=== PATIENT | male | born 1990 | race Two or more races ===

== ENCOUNTER 2024-07-02 20:44 | Inpatient (IN) | payer MEDICAID, OTHER ==
[~2024-07-02] VITALS: Ht 165.1 cm; Wt 92.7 kg
--- NOTE | 2024-07-02 21:20 | ED.PDOC ---
History of Present Illness HPI Comments 24 y/o M, with a Hx of HTN, obesity, and EtOH abuse, is BIBA for c/o ALOC s/p EtOH intoxication and chest pain, today. Per EMS report, patient was found by bystanders in altered and intoxicated state outside an "[employer]," this evening. On scene, EMS informs on patient, initially, c/o non-radiating, sternal chest pain in addition to admitting to heavy EtOH use, earlier, with all vitals within normal limits. At time of evaluation, patient is a poor historian and only reports last EtOH intake being yesterday. Patient endorses on no further relevant or pertinent past medical, surgical, or family Hx. Patient denies having any headache, dizziness, lightheadedness, shortness of breath, palp itations, nausea, vomiting, fever, chills, or other associated symptoms or modifiers at this time. 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 Past Medical History PAST MEDICAL HISTORY: HTN Past Medical History (Other): obesity Surgical History: Denies all surgeries Family History Family History: Unknown Social History Smoker: Non-Smoker Alcohol: Heavy Drugs: Denies Drug Use Lives In: Home Constitutional: denies: chills, diaphoresis, fatigue, fever, malaise, sweats, weakness, others EENTM: denies: blurred vision, double vision, ear bleeding, ear discharge, ear drainage, ear pain, ear ringing, eye pain, eye redness, hearing loss, mouth pain, mouth swelling, nasal discharge, nose bleeding, nose congestion, nose pain, photophobia, tearing, throat pain, throat swelling, voice changes, others Respiratory: denies: cough, hemoptysis, orthopnea, SOB at rest, shortness of breath, SOB with excertion, stridor, wheezing, others Cardiovascular: reports: chest pain; denies: dizzy spells, diaphoresis, Dyspnea on exertion, edema, irregular heart beat, left arm pain, lightheadedness, palpitations, PND, syncope, others Gastrointestinal: denies: abdomen distended, abdominal pain, blood streaked bowels, constipated, diarrhea, dysphagia, difficulty swallowing, hematemesis, melena, nausea, poor appetite, poor fluid intake, rectal bleeding, rectal pain, vomiting, others Genitourinary: denies: burning, dysuria, flank pain, frequency, hematuria, incontinence, penile discharge, penile sore, pain, testicle pain, testicle swelling, urgency, others Neurological: reports: others (ALOC s/p EtOH intoxication ); denies: dizziness, fainting, headache, left sided numbness, left sided weakness, numbness, paresthesia, pre-existing deficit, right sided numbness, right sided weakness, seizure, speech problems, tingling, tremors, weakness Musculoskeletal: denies: back pain, gout, joint pain, joint swelling, muscle pain, muscle stiffness, neck pain, others Integumetry: denies: bruises, change in color, change in hair/nails, dryness, laceration, lesions, lumps, rash, wounds, others Allergic/Immunocompromised: denies: Difficulty Healing, Frequent Infections, Hives, Itching, others Hematologic/Lymphatic: denies: anemia, blood clots, easy bleeding, easy bruising, swollen glands, others Endocrine: denies: excessive hunger, excessive sweating, excessive thirst, excessive urination, flushing, intolerance to cold, intolerance to heat, unexplained weight gain, unexplained weight loss, others Psychiatric: denies: anxiety, bipolar disorder, depression, hopeless, panic disorder, schizophrenia, sleepless, suicidal, others All Other Systems: Reviewed and Negative Physical Exam General Appearance: Moderate Distress HEENT: Normal ENT Inspection, Pharynx Normal, TMs Normal Neck: Full Range of Motion, Non-Tender, Normal, Normal Inspection Respiratory: Chest Non-Tender, Lungs Clear, No Accessory Muscle Use, No Respiratory Distress, Normal Breath Sounds Cardiovascular: No Edema, No JVD, No Murmur, No Gallop, Normal Peripheral Pulses, Regular Rate/Rhythm Breast Exam: Deferred Gastrointestinal: No Organomegaly, Non Tender, No Pulsatile Mass, Normal Bowel Sounds, Soft Genitalia: Deferred Pelvic: Deferred Rectal: Deferred Extremities: No calf tenderness, Normal capillary refill, Normal inspection, Normal range of motion, Non-tender, No pedal edema Musculoskeletal : Apperance: Normal Neurologic: Alert, 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 Was a procedure done?: No Differential Dx Considerations may include: EtOH intoxication, substance abuse, ID, ACS, angina, costochondritis, musculoskeletal pain, gastritis, gastroenteritis X-Ray, Labs, Meds, VS Vital Signs Date Time Temp Pulse Resp B/P (MAP) Pulse Ox O2 Delivery O2 Flow Rate FiO2 07/02/24 20:49 98.2 115 20 140/76 (97) 100 Lab Test 07/02/24 22:26 07/02/24 21:26 Range/Units White Blood Count 10.0 4.4-10.8 10^3/uL Red Blood Count 5.85 4.5-5.90 10^6/uL Hemoglobin 16.9 13.5-17.5 g/dL Hematocrit 50.7 41.0-53.0 % Mean Corpuscular Volume 86.7 80.0-100.0 fL Mean Corpuscular Hemoglobin 28.8 28.0-32.0 pg Mean Corpuscular Hemoglobin Concent 33.3 32.0-36.0 g/dL Red Cell Distribution Width 16.8 H 11.8-14.3 % Platelet Count 213 140-450 10^3/uL Mean Platelet Volume 8.2 6.9-10.8 fL Neutrophils (%) (Auto) 81.1 H 37.0-80.0 % Lymphocytes (%) (Auto) 13.0 10.0-50.0 % Monocytes (%) (Auto) 5.6 0.0-12.0 % Eosinophils (%) (Auto) 0.0 0.0-7.0 % Basophils (%) (Auto) 0.3 0.0-2.0 % Neutrophils # (Auto) 8.1 1.6-8.6 10 ^3/uL Lymphocytes # (Auto) 1.3 0.4-5.4 10 ^3/uL Monocytes # (Auto) 0.6 0-1.3 10 ^3/uL Eosinophils # (Auto) 0 0-0.8 10 ^3/uL Basophils # (Auto) 0 0-0.2 10 ^3/uL Nucleated Red Blood Cells 0.2 % Sodium Level 142 136-145 mmol/L Potassium Level 4.3 3.5-5.1 mmol/L Chloride Level 104 98-107 mmol/L Carbon Dioxide Level 18 L 20-31 mmol/L Anion Gap 20 H 5-15 Blood Urea Nitrogen 11 9-23 mg/dL Creatinine 0.85 0.700-1.30 mg/dL Glomerular Filtration Rate Calc 115 >90 mL/min BUN/Creatinine Ratio 12.9 10.0-20.0 Serum Glucose 131 H 74-106 mg/dL Calcium Level 8.9 8.7-10.4 mg/dL Total Bilirubin 0.6 0.2-1.0 mg/dL Aspartate Amino Transferase (AST) 147 H 13-40 U/L Alanine Aminotransferase (ALT) 92 H 7-40 U/L Alkaline Phosphatase 145 H 46-116 U/L Total Protein 7.1 5.7-8.2 g/dL Albumin 4.5 3.2-4.8 g/dL Plasma/Serum Blood Alcohol 365.1 H <10 mg/dL Troponin I High Sensitivity 7 </=54 ng/L Current Medications Medications (Trade) Dose Ordered Sig/Faith Route Start Time Stop Time Status Last Admin Sodium Chloride 1,000 ml @ 1,000 mls/hr Q1H ONCE IVB 07/02/24 21:00 07/02/24 21:59 DC 07/03/24 00:22 Thiamine HCl 100 mg ONCE ONCE IV 07/02/24 21:00 07/02/24 21:01 DC 07/03/24 00:23 [place] [address] Ph: [phone] DIAGNOSTIC IMAGING Diagnostic Imaging Report : [id number] Signed PATIENT: PAUL BOWERS ACCT: [id number] UNIT: [id number] : 1990 LOC: TELE ROOM / BED: [address] [place] [address] / A AGE / SEX: 34 / M ADM STATUS: ADM IN SERVICE [id number] ORDERING PHYSICIAN: DORIE CUENCA RESIDENT PROCEDURE(s): CTH - STROKE CTH REASON: ORDER NUMBER(s): [id number], ACCESSION NUMBER(s): [id number] EXAM: CT STROKE CTH HISTORY: Stroke COMPARISON: None TECHNIQUE: Axial images were obtained and reformatted in coronal and sagittal planes. All CT scans at this medical facility are performed using dose modulation techniques as appropriate to a performed exam including the following: Automated exposure control was utilized; adjustment of the MA and/or KV according to patient size; and use of iterative reconstruction technique. CT Dose: CTDI volume is 62.03 mGy. Dose-length product is 994.09 mGy*cm FINDINGS: Supratentorial Region: No evidence for large acute territorial ischemia. No intracranial hemorrhage is noted. Brainstem: Unremarkable. Sellar/Suprasellar Region: Unremarkable. Ventricles, Cisterns, Sulci: Age-appropriate. Orbits: Unremarkable. Paranasal Sinuses: Unremarkable. Mastoid Air Cells: Unremarkable. Vasculature: Unremarkable. Bones/Soft Tissues: No acute abnormality. Other: None. IMPRESSION: No acute intracranial process. Consider MRI if there is high clinical suspicion for acute CVA. ATED BY: LETITIA BHATT DO DICTATED DATE/TIME: 07/03/24135 SIGNED BY: LETITIA BHATT DO SIGNED DATE/TIME: 07/03/24135 CC: Patient alert. Complaining of chest pain. Alcohol on his breath. Cardiac marker within normal limits. Tachycardia. Saturation pristine on room air. Establish intravenous access. Was given fluids. Was given thiamine. EKG reviewed does not show any acute changes. Counseled patient on effects of alcohol for 15 minutes. Reviewed his history. Explained to the patient treatment plan. Time of 1ST Reevaluation: 21:30 Reevaluation 1ST: Unchanged Patient Education/Counseling: Diagnosis, Treatment Family Education/Counseling: No Family Present Departure 1 Departure Time of Disposition: 22:21 Impression: Primary Impression: Chest pain of unknown etiology Additional Impression: Alcohol abuse Disposition: ADMITTED INPATIENT Admit to: Med Surg Condition: Guarded Critical Care Note Critical Care Time?: Yes (45 min-critical care time only) Stability Stability form required: No Heart Score Heart Score: Heart Score Response (Comments) Value History Slightly Suspicious 0 EKG Normal 0 Age <45 0 Risk Factors No known risk factors 0 Troponin Normal limit 0 Total 0 I personally scribed for SONAL HERNANDEZ MD ([email or web address]) on 07/02/24 at 21:20. Electronically submitted by Venkatesh Magallanes ([email or web address]). I personally scribed for SONAL HERNANDEZ MD ([email or web address]) on 07/03/24 at 01:43. Electronically submitted by Venkatesh Magallanes ([email or web address]). SONAL HERNANDEZ MD Jul 02, 2024 21:20
[2024-07-02 22:37] LABS: Basophils # (auto) 0 10 ^3/uL (0-0.2); Basophils % (auto) 0.3 % (0.0-2.0); Eosinophils # (auto) 0 10 ^3/uL (0-0.8); Hematocrit 50.7 % (41.0-53.0); Hemoglobin 16.9 g/dL (13.5-17.5); Lymphocytes # (auto) 1.3 10 ^3/uL (0.4-5.4); Mean Corpuscular Hemoglobin 28.8 pg (28.0-32.0); Mean Corpuscular Hgb Conc. 33.3 g/dL (32.0-36.0); Mean Corpuscular Volume 86.7 fL (80.0-100.0); Monocytes # (auto) 0.6 10 ^3/uL (0-1.3); Monocytes % (auto) 5.6 % (0.0-12.0); Neutrophils # (auto) 8.1 10 ^3/uL (1.6-8.6); Neutrophils % (auto) 81.1 % (37.0-80.0); Nucleated Red Blood Cells % 0.2 %; Platelet Count (auto) 213 10^3/uL (140-450); Red Blood Cells 5.85 10^6/uL (4.5-5.90); Red Cell Distribution Width 16.8 % (11.8-14.3)
[2024-07-02 22:42] LABS: Chloride 104 mmol/L (98-107); Potassium 4.3 mmol/L (3.5-5.1); Sodium 142 mmol/L (136-145)
[2024-07-02 22:43] LABS: Anion Gap 20 (5-15); Carbon Dioxide 18 mmol/L (20-31)
[2024-07-02 22:44] LABS: Calcium 8.9 mg/dL (8.7-10.4)
[2024-07-02 22:48] LABS: BUN/Creatinine Ratio 12.9 (10.0-20.0); Blood Urea Nitrogen 11 mg/dL (9-23); Glucose 131 mg/dL (74-106)
[2024-07-02 22:58] LABS: Blood Alcohol 365.1 mg/dL (<10)
[2024-07-02] MEDS ORDERED: NITROGLYCERIN 0.4 MG SL TAB SL PRN (23:30)
[2024-07-02] MEDS ORDERED: MORPHINE SULFATE INJ 2 MG/ml SYRG IV PRN (23:30)
[2024-07-03] VITALS (7 sets, daily range): BP systolic 121–128; BP diastolic 69–82; PULSE 20–125; RESP 18–22; TEMP 97.5–99.1; O2SAT 96–100
[2024-07-03 00:14] LABS: Urine Bacteria FEW /hpf (None Seen); Urine Blood 1+ /uL (Negative); Urine Clarity Clear (Clear); Urine Color Yellow (Yellow); Urine Hyaline Cast MOD /lpf (0 - 2); Urine Mucus FEW (None Seen); Urine Protein, UAD 2+ (Negative); Urine Specific Gravity 1.025 (1.001-1.035); Urine Urobilinogen Normal (Negative); Urine WBC 3 /hpf (0 - 3); Urine pH 5.5 (5.0-9.0)
[2024-07-03 00:16] LABS: Albumin 4.5 g/dL (3.2-4.8); Bilirubin, Total 0.6 mg/dL (0.2-1.0); Total Protein 7.1 g/dL (5.7-8.2)
[2024-07-03 00:18] LABS: Amphetamine Screen, Urine Neg (NEGATIVE); Barbiturate Scree,Urine Neg (NEGATIVE); Benzodiazephine Screen, Urine Neg (NEGATIVE); Cannabinoid Screen, Urine Neg (NEGATIVE); Cocaine Screen, Urine Neg (NEGATIVE); Opiate Scree,Urine Neg (NEGATIVE); Phencyclidine Screen, Urine Neg (NEGATIVE)
[2024-07-03] MEDS: chlordiazePOXIDE HCL 25 MG CAP PO SCH (00:22)
[2024-07-03] MEDS: SODIUM CHLORIDE 0.9% 1,000 ML IVB ONE (00:22)
[2024-07-03] MEDS: ENOXAPARIN SOD 40 MG/0.4 ML SYRINGE SC SCH (00:22)
[2024-07-03] MEDS: THIAMINE 100mg/ml INJ (200mg/2ml VIAL) IV ONE (00:23)
--- NOTE | 2024-07-03 00:25 | DVHHPRES ---
History of Present Illness Resident Creating Document: DORIE CUENCA RESIDENT History of Present Illness PAUL BOWERS 34 years old male with a PMH of HTN, alcohol abuse, obesity presented to the ED with the chief complaints of altered level of consciousness due to ethanol intoxication or withdrawal and generalized chest pain since day of admission. Patient is poor historian unable to give complete details. Patient reported he took his last drink yesterday morning. Patient reported nonradiating diffuse chest pain nothing makes it better or worse since morning. Per EMS report patient was found by bystanders in altered or intoxicated state outside of an auto zone this evening. On my assessment patient is shaking, anxious, nauseous, feeling of ants crawling in the body but denies fever, chills, shortness of breath, dizziness and other associated symptoms Past Medical History HTN, alcohol abuse, obesity Past Surgical History: None Family History: None Past Social History Heavy alcohol abuser but denies smoking and other drug abuse Review of Systems Constitutional: Yes: Sweats Eyes: No: Pain, Vision change, Conjunctivae inflammation, Eyelid inflammation, Other, Redness ENT: No: Ear pain, Ear discharge, Nose pain, Nose discharge, Nose congestion, Mouth pain, Mouth swelling, Throat pain, Throat swelling, Other Respiratory: No: Cough, Dry, Shortness of breath, SOB with excertion, Wheezing, Hemoptysis, Pleuritic Pain, Sputum, Wheezing, Other Cardiovascular: Chest Pain Gastrointestinal: Nausea, Vomiting Genitourinary: No Dysuria, No Frequency, No Incontinence, No Hematuria, No Retention, No Other Musculoskeletal: other (Generalized body pain) Skin: No: Rash, Lesions, Jaundice, Bruising, Other Neurological: Confusion Allergies: Coded Allergies: NO KNOWN ALLERGIES (Unverified , 07/02/24) Medications Current Medications Medications Dose Ordered Sig/Faith Route Start Time Stop Time Status Last Admin Dose Admin Ondansetron HCl 4 mg Q4HP PRN IV 07/02/24 23:30 Multivitamins 1 tab DAILY PO 07/03/24 10:00 Acetaminophen 650 mg Q6HP PRN PO 07/02/24 23:30 Enoxaparin Sodium 40 mg DAILY SC 07/02/24 23:30 Nitroglycerin 0.4 mg Q5MINP PRN SL 07/02/24 23:30 Morphine Sulfate 2 mg Q30M PRN IV 07/02/24 23:30 Chlordiazepoxide HCl 50 mg Q8H PO 07/02/24 23:30 07/03/24 15:31 Chlordiazepoxide HCl 50 mg Q12HR PO 07/03/24 10:00 07/03/24 22:01 Chlordiazepoxide HCl 25 mg Q12HR PO 07/04/24 10:00 07/04/24 22:01 Chlordiazepoxide HCl 25 mg QAM PO 07/05/24 07:00 07/05/24 07:01 Folic Acid 1 mg/ Multivitamins 10 ml/Magnesium Sulfate 8 meq/ Thiamine HCl 100 mg/Dextrose 1,013.2 ml @ 125.001 mls/hr DAILY@1800 INJ 07/03/24 18:00 Exam Vital Signs Vital Signs Date Time Temp Pulse Resp B/P (MAP) Pulse Ox O2 Delivery O2 Flow Rate FiO2 07/03/24 00:09 20 18 100 Room Air* 0 21 07/03/24 00:05 98.6 132/78 (96) 98.6 Exam limited exam due to patient clinical status General Appearance: Pt is lying on bed, HEENT: Atraumatic, Mucous membranes moist/pink Respiratory: Clear to auscultation, Normal air movement, No added sounds Cardiovascular: Regular rate, Normal S1, Normal S2, No murmurs Abdominal: Active bowel sounds, Soft, no distention, no tenderness Extremities: No edema, Normal pulses, No tenderness/swelling Skin: No Significant rash, Neuro: Normal speech, sensorimotor deficits none Nurse was there as sharperone during examination Labs/Xrays Labs Test 07/02/24 23:53 07/02/24 22:26 07/02/24 21:26 Range/Units Urine Color Yellow Yellow Urine Clarity Clear Clear Urine pH 5.5 5.0-9.0 Urine Specific [place] 1.025 1.001-1.035 Urine Protein 2+ H Negative Urine Ketones 3+ H Negative Urine Blood 1+ H Negative /uL Urine Nitrite Negative Negative Urine Bilirubin Negative Negative Urine Urobilinogen Normal Negative mg/dL Urine Leukocyte Esterase Negative Negative /uL Urine RBC 2 0 - 3 /hpf Urine WBC 3 0 - 3 /hpf Urine Squamous Epithelial Cells Few <5 /hpf Urine Bacteria Few H None Seen /hpf Urine Hyaline Casts Mod 0 - 2 /lpf Urine Mucus Few None Seen Urine Glucose Normal Normal mg/dL White Blood Count 10.0 4.4-10.8 10^3/uL Red Blood Count 5.85 4.5-5.90 10^6/uL Hemoglobin 16.9 13.5-17.5 g/dL Hematocrit 50.7 41.0-53.0 % Mean Corpuscular Volume 86.7 80.0-100.0 fL Mean Corpuscular Hemoglobin 28.8 28.0-32.0 pg Mean Corpuscular Hemoglobin Concent 33.3 32.0-36.0 g/dL Red Cell Distribution Width 16.8 H 11.8-14.3 % Platelet Count 213 140-450 10^3/uL Mean Platelet Volume 8.2 6.9-10.8 fL Neutrophils (%) (Auto) 81.1 H 37.0-80.0 % Lymphocytes (%) (Auto) 13.0 10.0-50.0 % Monocytes (%) (Auto) 5.6 0.0-12.0 % Eosinophils (%) (Auto) 0.0 0.0-7.0 % Basophils (%) (Auto) 0.3 0.0-2.0 % Neutrophils # (Auto) 8.1 1.6-8.6 10 ^3/uL Lymphocytes # (Auto) 1.3 0.4-5.4 10 ^3/uL Monocytes # (Auto) 0.6 0-1.3 10 ^3/uL Eosinophils # (Auto) 0 0-0.8 10 ^3/uL Basophils # (Auto) 0 0-0.2 10 ^3/uL Nucleated Red Blood Cells 0.2 % Sodium Level 142 136-145 mmol/L Potassium Level 4.3 3.5-5.1 mmol/L Chloride Level 104 98-107 mmol/L Carbon Dioxide Level 18 L 20-31 mmol/L Anion Gap 20 H 5-15 Blood Urea Nitrogen 11 9-23 mg/dL Creatinine 0.85 0.700-1.30 mg/dL Glomerular Filtration Rate Calc 115 >90 mL/min BUN/Creatinine Ratio 12.9 10.0-20.0 Serum Glucose 131 H 74-106 mg/dL Calcium Level 8.9 8.7-10.4 mg/dL Plasma/Serum Blood Alcohol 365.1 H <10 mg/dL Troponin I High Sensitivity 7 </=54 ng/L Assessment/Plan Assessment/Plan # Acute toxic or metabolic encephalopathy likely secondary to alcohol # Acute alcohol intoxication # Acute alcohol withdrawal -plasma alcohol is elevated -ordered withdrawal protocol -currently given Librium -started banana bag -head CT pending -UDS pending -CIWA score is 21 # chest pain rule out ACS -reviewed EKG -troponins were negative Lovenox for now Protonix Cardiac diet Reconciled home meds Goals of care discussed with the patient for more than 27 minutes: Full code status Case management discussed with Dr. Guerrero, patient and nurse Plan discussed with: Patient My Orders Orders - DORIE CUENCA RESIDENT Procedure Category Date Status Time Admit ADMIT 07/02/24 Transmitted 23:29 Allergies PUSHPA 07/02/24 In Process 23:29 Code Status CODE 07/02/24 Transmitted 23:29 Ondansetron Hcl PHA 07/02/24 In Process (Zofran) 23:30 Multiple Vitamin PHA 07/03/24 In Process Tablet (Mvi Tab) 10:00 Complete Blood Count LAB 07/03/24 Logged 04:00 Comprehensive LAB 07/03/24 Logged Metabolic Panel 04:00 Acetaminophen Tablet PHA 07/02/24 In Process (Tylenol Tablet) 23:30 Enoxaparin Sodium PHA 07/02/24 In Process (Lovenox) 23:30 Nitroglycerin PHA 07/02/24 In Process Sublingual (Ntrostat 23:30 Morphine Sulfate PHA 07/02/24 In Process Injection 23:30 Oxygen By Nasal RT 07/02/24 Transmitted Cannula 23:29 Stat Ekg For Chest PUSHPA 07/02/24 In Process Pain 23:29 Notify Md Of Changes PUSHPA 07/02/24 In Process From Base 23:29 Flat Sorting Machine Clerk For PUSHPA 07/02/24 In Process 24 Hours 23:29 Emergency Dysrhythmia PUSHPA 07/02/24 In Process Protocol 23:29 Rhythm Strips Once PUSHPA 07/02/24 In Process Every Shift 23:29 Drug Screen LAB 07/02/24 In Process 23:29 Chlordiazepoxide Hcl PHA 07/02/24 In Process Capsule (Librium Ca 23:30 Chlordiazepoxide Hcl PHA 07/03/24 In Process Capsule (Librium Ca 10:00 Chlordiazepoxide Hcl PHA 07/04/24 In Process Capsule (Librium Ca 10:00 Chlordiazepoxide Hcl PHA 07/05/24 In Process Capsule (Librium Ca 07:00 Folic Acid... PHA 07/03/24 In Process 18:00 Vitamin D, 25-Hydroxy LAB 07/03/24 Logged 00:11 Vitamin B12 LAB 07/03/24 Logged 00:11 Thyroid Stimulating LAB 07/03/24 Logged Hormone 00:11 Hemoglobin A1c LAB 07/03/24 Logged 00:[address] 07/03/24 Logged 00:18 B-Type Natriuretic LAB 07/03/24 Logged Peptide 00:19 Pantoprazole PHA 07/03/24 Transmitted (Protonix) 00:30 Date of Service: Jul 02, 2024 Billing Provider: XIOMARA GUERRERO MD Common Visit Codes: [id number] INP/OBS CARE (HIGH) DORIE CUENCA RESIDENT Jul 03, 2024 00:25 XIOMARA GUERRERO MD Jul 04, 2024 09:28
[2024-07-03] MEDS: PANTOPRAZOLE 40 MG/10 ML VIAL INJ IV SCH (01:10)
--- NOTE | 2024-07-03 01:39 | DVH ---
EXAM: CT STROKE CTH HISTORY: Stroke COMPARISON: None TECHNIQUE: Axial images were obtained and reformatted in coronal and sagittal planes. All CT scans at this medical facility are performed using dose modulation techniques as appropriate t o a performed exam including the following: Automated exposure control was utilized; adjustment of th e MA and/or KV according to patient size; and use of iterative reconstruction technique. CT Dose: CTDI volume is 62.03 mGy. Dose-length product is 994.09 mGy*cm FINDINGS: Supratentorial Region: No evidence for large acute territorial ischemia. No intracranial hemorrhage is noted. Brainstem: Unremarkable. Sellar/Suprasellar Region: Unremarkable. Ventricles, Cisterns, Sulci: Age-appropriate. Orbits: Unremarkable. Paranasal Sinuses: Unremarkable. Mastoid Air Cells: Unremarkable. Vasculature: Unremarkable. Bones/Soft Tissues: No acute abnormality. Other: None. IMPRESSION: No acute intracranial process. Consider MRI if there is high clinical suspicion for acute CVA.
[2024-07-03 06:08] LABS: Basophils # (auto) 0 10 ^3/uL (0-0.2); Basophils % (auto) 0.5 % (0.0-2.0); Eosinophils # (auto) 0 10 ^3/uL (0-0.8); Hematocrit 40.1 % (41.0-53.0); Hemoglobin 13.5 g/dL (13.5-17.5); Lymphocytes # (auto) 2.1 10 ^3/uL (0.4-5.4); Mean Corpuscular Hemoglobin 28.8 pg (28.0-32.0); Mean Corpuscular Hgb Conc. 33.6 g/dL (32.0-36.0); Mean Corpuscular Volume 85.7 fL (80.0-100.0); Monocytes # (auto) 0.5 10 ^3/uL (0-1.3); Monocytes % (auto) 7.2 % (0.0-12.0); Neutrophils # (auto) 4.6 10 ^3/uL (1.6-8.6); Neutrophils % (auto) 63.3 % (37.0-80.0); Nucleated Red Blood Cells % 0.1 %; Platelet Count (auto) 187 10^3/uL (140-450); Red Blood Cells 4.67 10^6/uL (4.5-5.90); Red Cell Distribution Width 15.9 % (11.8-14.3); White Blood Cell 7.3 10^3/uL (4.4-10.8)
[2024-07-03 06:30] LABS: Alanine Aminotransferase 79 U/L (7-40); Albumin 3.9 g/dL (3.2-4.8); Alkaline Phosphatase 123 U/L (46-116); Anion Gap 15 (5-15); Aspartate Aminotransferase 131 U/L (13-40); Blood Urea Nitrogen 12 mg/dL (9-23); Calcium 8.4 mg/dL (8.7-10.4); Carbon Dioxide 21 mmol/L (20-31); Chloride 104 mmol/L (98-107); Glucose 131 mg/dL (74-106); Potassium 3.6 mmol/L (3.5-5.1); Sodium 140 mmol/L (136-145)
[2024-07-03 06:31] LABS: Bilirubin, Total 0.6 mg/dL (0.2-1.0)
[2024-07-03] MEDS: MULTIPLE VITAMIN TAB PO SCH (09:56)
[2024-07-03] MEDS: ACETAMINOPHEN 325 MG TAB PO PRN (09:56)
[2024-07-03] MEDS ORDERED: chlordiazePOXIDE HCL 25 MG CAP PO SCH (10:00)
[2024-07-03 11:52] LABS: Hepatitis B Surface Antigen Negative (Negative)
[2024-07-03 12:13] LABS: Hepatitis C Antibody Negative (Negative)
[2024-07-03] MEDS: SODIUM CHLORIDE 0.9% 1,000 ML IV ONE (12:43)
[2024-07-03] MEDS: LORazepam 2MG/ML-1ML VIAL IV PRN (12:50)
--- NOTE | 2024-07-03 16:47 | DVHPN2 ---
Subjective Patient denies any symptoms at this time Reviewed: Care Plan, H&P, Labs, Medications Changes from previous H/P or p: No Changes Eyes: No Pain, No Vision change, No Conjunctivae inflammation, No Eyelid inflammation, No Other, No Redness ENT: No Ear pain, No Ear discharge, No Nose pain, No Nose discharge, No Nose congestion, No Mouth pain, No Mouth swelling, No Throat pain, No Throat swelling, No Other Cardiovascular: Chest Pain Respiratory: No Cough, No Dry, No Shortness of breath, No SOB with excertion, No Wheezing, No Hemoptysis, No Pleuritic Pain, No Sputum, No Other Gastrointestinal: Nausea, Vomiting Genitourinary: No Dysuria, No Frequency, No Incontinence, No Hematuria, No Retention, No Other Musculoskeletal: other (Generalized body pain) Skin: No Rash, No Lesions, No Jaundice, No Bruising, No Other Objective Vitals Vital Signs Date Time Temp Pulse Resp B/P (MAP) Pulse Ox O2 Delivery O2 Flow Rate FiO2 07/03/24 12:00 97.5 113 22 121/72 (88) 96 97.5 07/03/24 09:15 Room Air* 0 21 Intake/Output Intake and Output 07/03/24 07:00 Intake Total 1000 ml Balance 1000 ml Intake IV Total 1000 ml General Appearance: Alert, Oriented X3, Cooperative, No acute distress HEENT: Atraumatic, PERRLA Cardiovascular: Normal S1, Normal S2, Other (Sinus tachycardia. No ectopy) Abdomen: Normal bowel sounds, Soft, No tenderness Genitourinary: No Apparent Abnormalities Back: Flank Tenderness, Midline Tenderness Musculoskeletal: Normal sensory function, Normal motor function Extremities: No clubbing, No cyanosis, No edema Neuro: Normal gait, Normal speech Psych/Mental Status: Mental status NL, Mood NL Medications Current Medications Medications Dose Ordered Sig/Faith Route Start Time Stop Time Status Last Admin Dose Admin Ondansetron HCl 4 mg Q4HP PRN IV 07/02/24 23:30 Multivitamins 1 tab DAILY PO 07/03/24 10:00 07/03/24 09:56 1 TAB Acetaminophen 650 mg Q6HP PRN PO 07/02/24 23:30 07/03/24 09:56 650 MG Enoxaparin Sodium 40 mg DAILY SC 07/02/24 23:30 07/03/24 09:56 40 MG Nitroglycerin 0.4 mg Q5MINP PRN SL 07/02/24 23:30 Morphine Sulfate 2 mg Q30M PRN IV 07/02/24 23:30 Folic Acid 1 mg/ Multivitamins 10 ml/Magnesium Sulfate 8 meq/ Thiamine HCl 100 mg/Dextrose 1,013.2 ml @ 125.001 mls/hr DAILY@1800 INJ 07/03/24 18:00 Pantoprazole Sodium 40 mg DAILY IV 07/03/24 00:30 07/03/24 09:54 40 MG Chlordiazepoxide HCl 50 mg Q12HR PO 07/04/24 10:00 07/04/24 22:01 Chlordiazepoxide HCl 25 mg Q12HR PO 07/05/24 10:00 07/05/24 22:01 Chlordiazepoxide HCl 25 mg QAM PO 07/06/24 07:00 07/06/24 07:01 Lorazepam 1 mg Q4HP PRN IV 07/03/24 12:30 07/03/24 12:50 1 MG Laboratory Results Laboratory Tests 07/03/24 05:05 Chemistry Test 07/02/24 22:26 07/03/24 05:05 Albumin 4.5 g/dL (3.2-4.8) 3.9 g/dL (3.2-4.8) Calcium Level 8.9 mg/dL (8.7-10.4) 8.4 mg/dL (8.7-10.4) L Total Protein 7.1 g/dL (5.7-8.2) 6.0 g/dL (5.7-8.2) Cardiac Markers Test 07/03/24 05:05 B-Type Natriuretic Peptide 8.49 pg/mL (0-100) LFT Test 07/02/24 22:26 07/03/24 05:05 Alanine Aminotransferase (ALT) 92 U/L (7-40) H 79 U/L (7-40) H Alkaline Phosphatase 145 U/L (46-116) H 123 U/L (46-116) H Aspartate Amino Transferase (AST) 147 U/L (13-40) H 131 U/L (13-40) H Total Bilirubin 0.6 mg/dL (0.2-1.0) 0.6 mg/dL (0.2-1.0) HgA1c, TSH Test 07/03/24 05:05 Hemoglobin A1c 5.5 % A1C (<5.7) Thyroid Stimulating Hormone (TSH) 0.28 uIU/mL (0.55-4.78) L Urinalysis Test 07/02/24 23:53 Urine Color Yellow (Yellow) Urine Clarity Clear (Clear) Urine pH 5.5 (5.0-9.0) Urine Specific [place] 1.025 (1.001-1.035) Urine Protein 2+ (Negative) H Urine Ketones 3+ (Negative) H Urine Blood 1+ /uL (Negative) H Urine Nitrite Negative (Negative) Urine Bilirubin Negative (Negative) Urine Urobilinogen Normal mg/dL (Negative) Urine Leukocyte Esterase Negative /uL (Negative) Urine RBC 2 /hpf (0 - 3) Urine WBC 3 /hpf (0 - 3) Urine Squamous Epithelial Cells Few /hpf (<5) Urine Bacteria Few /hpf (None Seen) H Urine Hyaline Casts Mod /lpf (0 - 2) Urine Mucus Few (None Seen) Urine Glucose Normal mg/dL (Normal) Labs and/or images reviewed: Labs reviewed by me, Image(s) reviewed by me Assessment/Plan Assessment/Plan Impression: -toxic metabolic encephalopathy secondary to alcoholism -acute alcohol intoxication -Obesity -transaminitis Plan: -continue MVI, thiamine -IV hydration -Librium as scheduled. P.r.n. IV Ativan as needed -repeat CMP in a.m. -continue with CIWA protocol Total time spent with patient discussing and formulating plan of care: 35 minutes. This medical document was created using an electronic medical record system with [employer] ([employer] dictation system. Although this document has been carefully reviewed, there may still be some phonetic and typographical errors. These areas are purely typographical due to imperfections of the software programs, and do not reflect any compromise in the patient's medical care. Plan discussed with: Patient, Other (RN) My Orders Orders - PALOMA HICKS NP Procedure Category Date Status Time Lorazepam 2mg/Ml Inj PHA 07/03/24 In Process (Ativan Inj) 12:30 Sodium Chloride 0.9% PHA 07/03/24 In Process 12:30 Regular Diet DIET 07/03/24 Transmitted Dinner Date of Service: Jul 03, 2024 Billing Provider: PALOMA HICKS NP Common Visit Codes: [id number] INP/OBS CARE(HIGH) PALOMA HICKS NP Jul 03, 2024 16:47
[2024-07-03] MEDS: FOLIC ACID 1 MG, MULTIPLE VITAMIN 10 ML, MAGNESIUM SULF SDV 50% 8 MEQ, THIAMINE INJ 100... INJ SCH (17:53)
[2024-07-04] VITALS (8 sets, daily range): BP systolic 121–157; BP diastolic 66–98; PULSE 97–117; RESP 18–20; TEMP 97.8–99.1; O2SAT 95–98
[2024-07-04 07:48] LABS: Alanine Aminotransferase 68 U/L (7-40); Albumin 3.7 g/dL (3.2-4.8); Alkaline Phosphatase 141 U/L (46-116); Anion Gap 10 (5-15); Aspartate Aminotransferase 83 U/L (13-40); BUN/Creatinine Ratio 7.7 (10.0-20.0); Bilirubin, Total 1.1 mg/dL (0.2-1.0); Blood Urea Nitrogen 5 mg/dL (9-23); Calcium 9.2 mg/dL (8.7-10.4); Carbon Dioxide 27 mmol/L (20-31); Chloride 101 mmol/L (98-107); Glucose 98 mg/dL (74-106); Sodium 138 mmol/L (136-145)
[2024-07-04] MEDS: chlordiazePOXIDE HCL 25 MG CAP PO SCH (09:27)
[2024-07-04] MEDS ORDERED: chlordiazePOXIDE HCL 25 MG CAP PO SCH (10:00)
[2024-07-04 11:34] LABS: Rapid Influenza A Negative (Negative); Rapid Influenza B Negative (Negative)
[2024-07-04 11:35] LABS: COVID19 ANTIGEN SOFIA FIA NEGATIVE (NEGATIVE)
[2024-07-04] MEDS: POTASSIUM EFFERVESENT TAB 25 MEQ PO ONE (13:18)
--- NOTE | 2024-07-04 13:29 | DVH ---
EXAM: XY CHEST XRAY 1 VIEW TECHNIQUE: Single frontal chest radiograph CLINICAL HISTORY: congestion, sob COMPARISON: None Findings/Impression: Frontal chest radiograph demonstrates no acute osseous or superficial soft tissue abnormalities. The trachea is midline. The cardiac silhouette and mediastinum are within normal limits. No pneumothorax, pleural effusions, or consolidations.
--- NOTE | 2024-07-04 15:36 | DVHPN2 ---
Subjective Patient denies any symptoms at this time Reviewed: Care Plan, H&P, Labs, Medications Changes from previous H/P or p: No Changes Eyes: No Pain, No Vision change, No Conjunctivae inflammation, No Eyelid inflammation, No Other, No Redness ENT: No Ear pain, No Ear discharge, No Nose pain, No Nose discharge, No Nose congestion, No Mouth pain, No Mouth swelling, No Throat pain, No Throat swelling, No Other Cardiovascular: Chest Pain Respiratory: No Cough, No Dry, No Shortness of breath, No SOB with excertion, No Wheezing, No Hemoptysis, No Pleuritic Pain, No Sputum, No Other Gastrointestinal: Nausea, Vomiting Genitourinary: No Dysuria, No Frequency, No Incontinence, No Hematuria, No Retention, No Other Musculoskeletal: other (Generalized body pain) Skin: No Rash, No Lesions, No Jaundice, No Bruising, No Other Objective Vitals Vital Signs Date Time Temp Pulse Resp B/P (MAP) Pulse Ox O2 Delivery O2 Flow Rate FiO2 07/04/24 13:00 97.9 97 20 131/79 (96) 98 97.9 07/04/24 08:10 Room Air* 0 21 Intake/Output Intake and Output 07/04/24 07:00 Intake Total 2000 ml Balance 2000 ml Intake Oral 1000 ml IV Total 1000 ml # Voids 1 # Bowel Movements 3 General Appearance: Alert, Oriented X3, Cooperative, No acute distress HEENT: Atraumatic, PERRLA Cardiovascular: Normal S1, Normal S2, Other (Sinus tachycardia. No ectopy) Abdomen: Normal bowel sounds, Soft, No tenderness Genitourinary: No Apparent Abnormalities Back: Flank Tenderness, Midline Tenderness Musculoskeletal: Normal sensory function, Normal motor function Extremities: No clubbing, No cyanosis, No edema Neuro: Normal gait, Normal speech Psych/Mental Status: Mental status NL, Mood NL Medications Current Medications Medications Dose Ordered Sig/Faith Route Start Time Stop Time Status Last Admin Dose Admin Ondansetron HCl 4 mg Q4HP PRN IV 07/02/24 23:30 Acetaminophen 650 mg Q6HP PRN PO 07/02/24 23:30 07/04/24 06:10 650 MG Enoxaparin Sodium 40 mg DAILY SC 07/02/24 23:30 07/04/24 09:28 40 MG Nitroglycerin 0.4 mg Q5MINP PRN SL 11/3/24 23:30 Morphine Sulfate 2 mg Q30M PRN IV 07/02/24 23:30 Pantoprazole Sodium 40 mg DAILY IV 07/03/24 00:30 07/04/24 09:27 40 MG Chlordiazepoxide HCl 50 mg Q12HR PO 07/04/24 10:00 07/04/24 22:01 07/04/24 09:27 50 MG Chlordiazepoxide HCl 25 mg Q12HR PO 07/05/24 10:00 07/05/24 22:01 Chlordiazepoxide HCl 25 mg QAM PO 07/06/24 07:00 07/06/24 07:01 Lorazepam 1 mg Q4HP PRN IV 07/03/24 12:30 07/04/24 06:32 1 MG Folic Acid 1 mg DAILY PO 07/05/24 10:00 Thiamine HCl 100 mg DAILY PO 07/05/24 10:00 Multivitamins 1 tab DAILY PO 07/05/24 10:00 Magnesium Oxide 400 mg DAILY PO 07/05/24 10:00 Laboratory Results Laboratory Tests 07/03/24 05:05 07/04/24 06:29 Chemistry Test 07/04/24 06:29 Albumin 3.7 g/dL (3.2-4.8) Calcium Level 9.2 mg/dL (8.7-10.4) Total Protein 6.0 g/dL (5.7-8.2) LFT Test 07/04/24 06:29 Alanine Aminotransferase (ALT) 68 U/L (7-40) H Alkaline Phosphatase 141 U/L (46-116) H Aspartate Amino Transferase (AST) 83 U/L (13-40) H Total Bilirubin 1.1 mg/dL (0.2-1.0) H Urinalysis Test 07/02/24 23:53 Urine Color Yellow (Yellow) Urine Clarity Clear (Clear) Urine pH 5.5 (5.0-9.0) Urine Specific [place] 1.025 (1.001-1.035) Urine Protein 2+ (Negative) H Urine Ketones 3+ (Negative) H Urine Blood 1+ /uL (Negative) H Urine Nitrite Negative (Negative) Urine Bilirubin Negative (Negative) Urine Urobilinogen Normal mg/dL (Negative) Urine Leukocyte Esterase Negative /uL (Negative) Urine RBC 2 /hpf (0 - 3) Urine WBC 3 /hpf (0 - 3) Urine Squamous Epithelial Cells Few /hpf (<5) Urine Bacteria Few /hpf (None Seen) H Urine Hyaline Casts Mod /lpf (0 - 2) Urine Mucus Few (None Seen) Urine Glucose Normal mg/dL (Normal) Labs and/or images reviewed: Labs reviewed by me, Image(s) reviewed by me Assessment/Plan Assessment/Plan Impression: -toxic metabolic encephalopathy secondary to alcoholism -acute alcohol intoxication -Obesity -transaminitis -hypokalemia Plan: Events: Patient continues to have tremors hands. Tachycardia. -continue banana bag daily -potassium replacement -Librium as scheduled. P.r.n. IV Ativan as needed -repeat CMP in a.m. -continue with CIWA protocol -social service consultation for rehab placement tomorrow. Total time spent with patient discussing and formulating plan of care: 35 minutes. This medical document was created using an electronic medical record system with [employer] dictation system. Although this document has been carefully reviewed, there may still be some phonetic and typographical errors. These areas are purely typographical due to imperfections of the software programs, and do not reflect any compromise in the patient's medical care. Plan discussed with: Patient, Other (RN) My Orders Orders - PALOMA HICKS NP Procedure Category Date Status Time Chest Xray 1 View XY 07/04/24 Resulted 09:54 Basic Metabolic Panel LAB 07/05/24 Verified 04:00 Magnesium LAB 07/05/24 Verified 04:00 Date of Service: Jul 04, 2024 Billing Provider: PALOMA HICKS NP Common Visit Codes: [id number] INP/OBS CARE(HIGH) PALOMA HICKS NP Jul 04, 2024 15:35
[2024-07-04] MEDS: MULTIPLE VITAMIN TAB PO ONE (16:14)
[2024-07-04] MEDS: MAGNESIUM OXIDE 400 MG TAB PO ONE (16:15)
[2024-07-04] MEDS: FOLIC ACID 1 MG TAB PO ONE (16:15)
[2024-07-04] MEDS: THIAMINE HCL 100 MG TAB PO ONE (16:15)
[2024-07-04] MEDS: ONDANSETRON HCL 4 MG/2 ML VIAL IV PRN (22:57)
[2024-07-04] MEDS: chlordiazePOXIDE HCL 25 MG CAP PO ONE (23:30)
[2024-07-05] VITALS (8 sets, daily range): BP systolic 110–158; BP diastolic 72–95; PULSE 94–124; RESP 20–21; TEMP 97.9–98.9; O2SAT 95–97
[2024-07-05] MEDS: HYDROcodone-ACET 5/325MG TAB PO ONE (01:03)
[2024-07-05] MEDS: guaiFENesin-DM 100/10mg/5ml SYR PO PRN (01:03)
[2024-07-05] MEDS ORDERED: chlordiazePOXIDE HCL 25 MG CAP PO SCH (07:00)
[2024-07-05 07:39] LABS: Chloride 103 mmol/L (98-107); Potassium 3.5 mmol/L (3.5-5.1); Sodium 138 mmol/L (136-145)
[2024-07-05 07:40] LABS: Anion Gap 7 (5-15); Calcium 9.5 mg/dL (8.7-10.4); Carbon Dioxide 28 mmol/L (20-31)
[2024-07-05 07:45] LABS: BUN/Creatinine Ratio 6.6 (10.0-20.0); Blood Urea Nitrogen 5 mg/dL (9-23); Glucose 108 mg/dL (74-106); Magnesium 2.1 mg/dL (1.6-2.6)
--- NOTE | 2024-07-05 09:46 | DVHPN2 ---
Subjective Patient denies any symptoms at this time Reviewed: Care Plan, H&P, Labs, Medications Changes from previous H/P or p: No Changes Eyes: No Pain, No Vision change, No Conjunctivae inflammation, No Eyelid inflammation, No Other, No Redness ENT: No Ear pain, No Ear discharge, No Nose pain, No Nose discharge, No Nose congestion, No Mouth pain, No Mouth swelling, No Throat pain, No Throat swelling, No Other Cardiovascular: Chest Pain Respiratory: No Cough, No Dry, No Shortness of breath, No SOB with excertion, No Wheezing, No Hemoptysis, No Pleuritic Pain, No Sputum, No Other Gastrointestinal: Nausea, Vomiting Genitourinary: No Dysuria, No Frequency, No Incontinence, No Hematuria, No Retention, No Other Musculoskeletal: other (Generalized body pain) Skin: No Rash, No Lesions, No Jaundice, No Bruising, No Other Objective Vitals Vital Signs Date Time Temp Pulse Resp B/P (MAP) Pulse Ox O2 Delivery O2 Flow Rate FiO2 07/05/24 08:51 98.4 94 21 121/86 (98) 97 98.4 07/04/24 20:00 Room Air* 0 21 Intake/Output Intake and Output 07/05/24 07:00 Intake Total 4050 ml Balance 4050 ml Intake Oral 3550 ml IV Total 500 ml # Voids 4 # Bowel Movements 2 General Appearance: Alert, Oriented X3, Cooperative, No acute distress HEENT: Atraumatic, PERRLA Cardiovascular: Normal S1, Normal S2, Other (Sinus tachycardia. No ectopy) Abdomen: Normal bowel sounds, Soft, No tenderness Genitourinary: No Apparent Abnormalities Back: Flank Tenderness, Midline Tenderness Musculoskeletal: Normal sensory function, Normal motor function Extremities: No clubbing, No cyanosis, No edema Neuro: Normal gait, Normal speech Psych/Mental Status: Mental status NL, Mood NL Medications Current Medications Medications Dose Ordered Sig/Faith Route Start Time Stop Time Status Last Admin Dose Admin Ondansetron HCl 4 mg Q4HP PRN IV 07/02/24 23:30 07/04/24 22:57 4 MG Acetaminophen 650 mg Q6HP PRN PO 07/02/24 23:30 07/04/24 18:09 650 MG Enoxaparin Sodium 40 mg DAILY SC 07/02/24 23:30 07/04/24 09:28 40 MG Nitroglycerin 0.4 mg Q5MINP PRN SL 07/02/24 23:30 Morphine Sulfate 2 mg Q30M PRN IV 07/02/24 23:30 Pantoprazole Sodium 40 mg DAILY IV 07/03/24 00:30 07/04/24 09:27 40 MG Chlordiazepoxide HCl 25 mg Q12HR PO 07/05/24 10:00 07/05/24 22:01 Chlordiazepoxide HCl 25 mg QAM PO 07/06/24 07:00 07/06/24 07:01 Lorazepam 1 mg Q4HP PRN IV 07/03/24 12:30 07/05/24 02:27 1 MG Folic Acid 1 mg DAILY PO 07/05/24 10:00 Thiamine HCl 100 mg DAILY PO 07/05/24 10:00 Multivitamins 1 tab DAILY PO 07/05/24 10:00 Magnesium Oxide 400 mg DAILY PO 07/05/24 10:00 Guaifenesin/ Dextromethorphan 10 ml Q6HP PRN PO 07/05/24 00:45 07/05/24 01:03 10 ML Laboratory Results Laboratory Tests 07/03/24 05:05 07/05/24 06:18 Chemistry Test 07/05/24 06:18 Calcium Level 9.5 mg/dL (8.7-10.4) Magnesium Level 2.1 mg/dL (1.6-2.6) Urinalysis Test 07/02/24 23:53 Urine Color Yellow (Yellow) Urine Clarity Clear (Clear) Urine pH 5.5 (5.0-9.0) Urine Specific [place] 1.025 (1.001-1.035) Urine Protein 2+ (Negative) H Urine Ketones 3+ (Negative) H Urine Blood 1+ /uL (Negative) H Urine Nitrite Negative (Negative) Urine Bilirubin Negative (Negative) Urine Urobilinogen Normal mg/dL (Negative) Urine Leukocyte Esterase Negative /uL (Negative) Urine RBC 2 /hpf (0 - 3) Urine WBC 3 /hpf (0 - 3) Urine Squamous Epithelial Cells Few /hpf (<5) Urine Bacteria Few /hpf (None Seen) H Urine Hyaline Casts Mod /lpf (0 - 2) Urine Mucus Few (None Seen) Urine Glucose Normal mg/dL (Normal) Labs and/or images reviewed: Labs reviewed by me, Image(s) reviewed by me Assessment/Plan Assessment/Plan Impression: -toxic metabolic encephalopathy secondary to alcoholism -acute alcohol intoxication -Obesity -transaminitis -hypokalemia Plan: Events: Patient continues to have signs of delirium tremens. Hands continue to be shaky. Reports having difficulty sleeping. Chest x-ray negative. Negative for influenza and COVID-19. -change to MVI, folic acid p.o. -antitussives -Librium as scheduled. P.r.n. IV Ativan as needed -repeat CMP in a.m. -continue with CIWA protocol -social service consultation for rehab placement tomorrow. Total time spent with patient discussing and formulating plan of care: 35 minutes. This medical document was created using an electronic medical record system with [employer] dictation system. Although this document has been carefully reviewed, there may still be some phonetic and typographical errors. These areas are purely typographical due to imperfections of the software programs, and do not reflect any compromise in the patient's medical care. Plan discussed with: Patient, Other (RN) My Orders Orders - PALOMA HICKS NP Procedure Category Date Status Time Chest Xray 1 View XY 07/04/24 Resulted 09:54 Date of Service: Jul 05, 2024 Billing Provider: PALOMA HICKS NP Common Visit Codes: [id number] INP/OBS CARE(HIGH) PALOMA HICKS NP Jul 05, 2024 09:46
[2024-07-05] MEDS: THIAMINE HCL 100 MG TAB PO SCH (10:07)
[2024-07-05] MEDS: MAGNESIUM OXIDE 400 MG TAB PO SCH (10:08)
[2024-07-05] MEDS: chlordiazePOXIDE HCL 25 MG CAP PO SCH (10:08)
[2024-07-05] MEDS: FOLIC ACID 1 MG TAB PO SCH (10:08)
[2024-07-05] MEDS: MULTIPLE VITAMIN TAB PO SCH (10:08)
[2024-07-06 05:03] VITALS: BP 136/85; PULSE 111; RESP 18; TEMP 99.3; O2SAT 95
[2024-07-06] MEDS: chlordiazePOXIDE HCL 25 MG CAP PO SCH (06:26)
[2024-07-06 08:00] VITALS: PULSE 112
[2024-07-06 09:00] VITALS: BP 102/67; PULSE 110; RESP 17; TEMP 99.8; O2SAT 95
[2024-07-06] MEDS ORDERED: THIA100T10 PO (09:07)
--- NOTE | 2024-07-06 09:16 | DVHDS2 ---
Discharge Summary Date of Admission Jul 02, 2024 at 23:29 Date of Discharge: Jul 06, 2024 Admitting Diagnosis Acute toxic metabolic encephalopathy Labs/Diagnostic Data: Laboratory Results Test 07/05/24 06:18 07/04/24 10:15 07/04/24 06:29 07/03/24 05:05 Sodium Level 138 mmol/L (136-145) Potassium Level 3.5 mmol/L (3.5-5.1) Chloride Level 103 mmol/L (98-107) Carbon Dioxide Level 28 mmol/L (20-31) Anion Gap 7 (5-15) Blood Urea Nitrogen 5 mg/dL (9-23) Creatinine 0.76 mg/dL (0.700-1.30) Glomerular Filtration Rate Calc 119 mL/min (>90) BUN/Creatinine Ratio 6.6 (10.0-20.0) Serum Glucose 108 mg/dL (74-106) Calcium Level 9.5 mg/dL (8.7-10.4) Magnesium Level 2.1 mg/dL (1.6-2.6) Influenza Type A Antigen Negative (Negative) Influenza Type B Antigen Negative (Negative) SARS-CoV-2 Antigen (Rapid) Negative (NEGATIVE) Total Bilirubin 1.1 mg/dL (0.2-1.0) Aspartate Amino Transferase (AST) 83 U/L (13-40) Alanine Aminotransferase (ALT) 68 U/L (7-40) Alkaline Phosphatase 141 U/L (46-116) Total Protein 6.0 g/dL (5.7-8.2) Albumin 3.7 g/dL (3.2-4.8) White Blood Count 7.3 10^3/uL (4.4-10.8) Red Blood Count 4.67 10^6/uL (4.5-5.90) Hemoglobin 13.5 g/dL (13.5-17.5) Hematocrit 40.1 % (41.0-53.0) Mean Corpuscular Volume 85.7 fL (80.0-100.0) Mean Corpuscular Hemoglobin 28.8 pg (28.0-32.0) Mean Corpuscular Hemoglobin Concent 33.6 g/dL (32.0-36.0) Red Cell Distribution Width 15.9 % (11.8-14.3) Platelet Count 187 10^3/uL (140-450) Mean Platelet Volume 8.4 fL (6.9-10.8) Neutrophils (%) (Auto) 63.3 % (37.0-80.0) Lymphocytes (%) (Auto) 29.0 % (10.0-50.0) Monocytes (%) (Auto) 7.2 % (0.0-12.0) Eosinophils (%) (Auto) 0.0 % (0.0-7.0) Basophils (%) (Auto) 0.5 % (0.0-2.0) Neutrophils # (Auto) 4.6 10 ^3/uL (1.6-8.6) Lymphocytes # (Auto) 2.1 10 ^3/uL (0.4-5.4) Monocytes # (Auto) 0.5 10 ^3/uL (0-1.3) Eosinophils # (Auto) 0 10 ^3/uL (0-0.8) Basophils # (Auto) 0 10 ^3/uL (0-0.2) Nucleated Red Blood Cells 0.1 % Hemoglobin A1c 5.5 % A1C (<5.7) B-Type Natriuretic Peptide 8.49 pg/mL (0-100) Vitamin B12 Level 822 pg/mL (211-911) Vitamin D 25-Hydroxy 33.2 ng/mL (30.0-100) Thyroid Stimulating Hormone (TSH) 0.28 uIU/mL (0.55-4.78) Hepatitis B Surface Antigen Negative (Negative) Hepatitis C Antibody Negative (Negative) Test 07/02/24 23:53 07/02/24 22:26 07/02/24 21:26 Urine Color Yellow (Yellow) Urine Clarity Clear (Clear) Urine pH 5.5 (5.0-9.0) Urine Specific [place] 1.025 (1.001-1.035) Urine Protein 2+ (Negative) Urine Ketones 3+ (Negative) Urine Blood 1+ /uL (Negative) Urine Nitrite Negative (Negative) Urine Bilirubin Negative (Negative) Urine Urobilinogen Normal mg/dL (Negative) Urine Leukocyte Esterase Negative /uL (Negative) Urine RBC 2 /hpf (0 - 3) Urine WBC 3 /hpf (0 - 3) Urine Squamous Epithelial Cells Few /hpf (<5) Urine Bacteria Few /hpf (None Seen) Urine Hyaline Casts Mod /lpf (0 - 2) Urine Mucus Few (None Seen) Urine Glucose Normal mg/dL (Normal) Urine Opiates Screen Neg (NEGATIVE) Urine Fentanyl Screen Neg (NEGATIVE) Urine Barbiturates Screen Neg (NEGATIVE) Urine Phencyclidine Screen Neg (NEGATIVE) Urine Amphetamines Screen Neg (NEGATIVE) Urine Benzodiazepines Screen Neg (NEGATIVE) Urine Cocaine Screen Neg (NEGATIVE) Urine Cannabinoids Screen Neg (NEGATIVE) Plasma/Serum Blood Alcohol 365.1 mg/dL (<10) Troponin I High Sensitivity 7 ng/L (</=54) Other Laboratory Tests 07/05/24 06:18 07/03/24 05:05 Brief Hx & Hospital Course: History of Present Illness PAUL BOWERS 34 years old male with a PMH of HTN, alcohol abuse, obesity presented to the ED with the chief complaints of altered level of consciousness due to ethanol intoxication or withdrawal and generalized chest pain since day of admission. Patient is poor historian unable to give complete details. Patient reported he took his last drink yesterday morning. Patient reported nonradiating diffuse chest pain nothing makes it better or worse since morning. Per EMS report patient was found by bystanders in altered or intoxicated state outside of an auto zone this evening. On my assessment patient is shaking, anxious, nauseous, feeling of ants crawling in the body but denies fever, chills, shortness of breath, dizziness and other associated symptoms. Course of hospitalization: Patient had resolution of his symptoms. He was started on CIWA protocol and provider both Librium, p.r.n. Ativan, as well as banana bag initially which was transitioned to thiamine and MVI. Patient was noted to have some hypertension which was treated with metoprolol tartrate. The patient will be discharged home and follow up with the alcohol rehabilitation center in [facility]. Business Librarian has been consulted to assist with any other resources with the patient needs. He will be continued on thiamine 100 mg p.o. daily for the next 30 days. All questions answered. Physical examination General: Alert and Oriented x3. No acute distress. Well-nourished. Obese Eyes: EOMI. Anicteric. HENT: Moist mucous membranes. Lungs: Clear to auscultation bilaterally. No accessory muscle use. Cardiovascular: Regular rate and rhythm. No murmur. No JVD. Abdomen: Soft, non-tender and non-distended. No palpable masses. Extremities: No edema. Non-tender. Skin: No rashes or lesions. Warm. Neurologic: No focal neurological deficits. CN II-XII grossly intact, but not individually tested. Psychiatric: Cooperative. Appropriate mood and affect. Total time spent with patient discussing and formulating plan of care: 35 minutes. This medical document was created using an electronic medical record system with [employer] dictation system. Although this document has been carefully reviewed, there may still be some phonetic and typographical errors. These areas are purely typographical due to imperfections of the software programs, and do not reflect any compromise in the patient's medical care. Condition at Discharge: Guarded Final Diagnosis/Problems List Acute alcohol withdrawal Secondary Diagnosis: -toxic metabolic encephalopathy secondary to alcoholism -acute alcohol intoxication -Obesity -transaminitis -hypokalemia Discharge Disposition: Home Discharge Instruct/Medications Diet: Regular Activity: No Restrictions, As Tolerated Follow Up/Referral: Follow up with alcohol rehab center Medications: Thiamine 100 mg p.o. day times 30 days 36 Discharge Statement: "Patient was advised to return to the ER or call 911 if any headaches, dizziness, shortness of breath, chest pain, abdominal pain, bleeding, fevers, or worsening of medical condition. Patient was counseled about treatment plan, medications, possible side effects, patientverbalized understanding. All questions were answered to the best of my ability. This discharge took greater then 30 minutes in planning, reviewing documentation, counseling the patient, and discussing with other team members." ASSESSMENT ASSESSMENT Assessment Acute alcohol withdrawal Date of Service: Jul 06, 2024 Billing Provider: PALOMA HICKS NP Common Visit Codes: [id number] DISCH DAY >30min PALOMA HICKS NP Jul 06, 2024 09:16
[2024-07-06] MEDS: METOPROLOL TARTRATE 50 MG TAB PO ONE (09:49)
== END 2024-07-06 12:06 | disposition home or self-care (01) | DRG 816 ==
LOC: EDBD 20:44 → ER 20:44 → TELE 23:29 → TELE-WESTW 23:35
PROVIDERS: ATTEND Nurse Practitioner Acute Care
DX: T51.91XA Toxic effect of unspecified alcohol, accidental (unintentional), initial encounter (principal); G92.8 Other toxic encephalopathy; R07.9 Chest pain, unspecified; E87.6 Hypokalemia; Z20.822 Contact with and (suspected) exposure to COVID-19; E66.9 Obesity, unspecified; I10 Essential (primary) hypertension; F10.229 Alcohol dependence with intoxication, unspecified; F10.239 Alcohol dependence with withdrawal, unspecified; Z86.73 Personal history of transient ischemic attack (TIA), and cerebral infarction without residual deficits; Y90.8 Blood alcohol level of 240 mg/100 ml or more; Z68.33 Body mass index [BMI] 33.0-33.9, adult
CPT/HCPCS: 36415; 70450; 71045; 80048; 80053; 80307; 80320; 81001; 82040; 82247; 82306; 82607; 83036; 83735; 83880; 84075; 84155; 84443; 84450; 84460; 84484; 85025; 86803; 87340; 87426; 87804; 99291; G0378; J2405; J2470